=== PATIENT | female | born 1955 | race Two or more races ===

== ENCOUNTER → 2017-04-05 | Outpatient (CLI) | payer BC | LOC: CIMAGING 10:12 | PROVIDERS: ATTEND Family Medicine | DX: Z12.31 Encounter for screening mammogram for malignant neoplasm of breast (principal); Z80.3 Family history of malignant neoplasm of breast | CPT/HCPCS: G0202 ==

== ENCOUNTER → 2018-04-11 | Outpatient (CLI) | payer BC | LOC: CIMAGING 08:32 | PROVIDERS: ATTEND Family Medicine | DX: Z12.31 Encounter for screening mammogram for malignant neoplasm of breast (principal) ==